=== PATIENT | female | born 1930 | race Caucasian/White ===

== ENCOUNTER 2017-10-01 18:27 | Inpatient (IN) | payer OTHER ==
[~2017-10-01] VITALS: Ht 154.9 cm; Wt 50.0 kg
--- NOTE | ~2017-10-01 | EKG ---
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
--- NOTE | ~2017-10-01 | O ---
[facility] [place] [address] OPERATIVE REPORT Name: SARAH MOORE Room #: 363-P [facility] IN M.R.#: [id number] Admission: 10/01/17 Attend Phys: Derrick Rangel MD Discharge: 10/05/17 Date of : 34 Report #: [id number] THIS REPORT FOR: //name// CC: Timo Rangel DATE OF SERVICE: 10/03/2017 PREOPERATIVE DIAGNOSIS: Possible upper gastrointestinal hemorrhage and abnormal CT scan. POSTOPERATIVE DIAGNOSIS: See below. ANESTHESIA USED: See nursing notes. NAME OF PROCEDURE PERFORMED: Esophagogastroduodenoscopy. INDICATION FOR PROCEDURE: As above. FINDINGS: Normal EGD. DESCRIPTION OF PROCEDURE: The risks and benefits of the procedure were explained in detail prior to conscious sedation. The patient was placed in left lateral decubitus position and the tip of the Olympus video endoscope was advanced into the oropharynx, esophagus, stomach, and into the third portion of the duodenum. Close inspection of the upper gastrointestinal mucosa was obtained upon slow withdrawal of the endoscope. The duodenum was normal in appearance without evidence of erosion or ulceration. The pylorus was patent without evidence of obstruction. The gastric antrum and gastric body were normal in appearance without evidence of ulcer or mass. Retroflexion allowed close inspection of the cardia and the fundus, which was normal as well without ulceration or mass. There was no bleeding source noted. There was no evidence of any mass throughout the entire stomach even after close inspection despite the CT findings. The GE junction was approximately 40 cm from the incisors and the rest of the esophagus was normal as well. The patient tolerated the procedure well and was discharged to recovery room. IMPRESSION: Normal EGD despite abnormal appearing CT of the stomach. PLAN: 1. If bleeding persists bleeding scan. 2. Consider colonoscopy. <ELECTRONICALLY SIGNED> By: Kwabena Sellers MD 10/06/17 [id number] Will Gonzales MD /nt
--- NOTE | ~2017-10-01 | HC ---
[facility] [place] [address] CONSULTATION Name: SARAH MOORE Room #: 363-P [facility] IN M.R.#: [id number] Admission: 10/01/17 Attend Phys: Derrick Rangel MD Discharge: 10/05/17 Date of : 34 Report #: [id number] THIS REPORT FOR: //name// CC: Timo Rangel DATE OF SERVICE: 10/03/2017 HISTORY OF PRESENT ILLNESS: The patient is an 87-year-old female I have been asked to see for further evaluation of rectal bleeding. Her medical history is notable for hypertension, hypercholesterolemia, coronary artery disease, tonsillectomy, appendectomy and partial hysterectomy. She had a colonoscopy done approximately one year ago with polyps. Details are not available, otherwise. She had an upper endoscopy as well. FAMILY HISTORY AND SOCIAL HISTORY: Noncontributory. She does have alcohol consumption, but not abuse. MEDICATIONS: Vitamin D3, Crestor, Lopressor and Cozaar. REVIEW OF SYSTEMS: Negative for weight loss, recent weakness or fatigue. She denies head, eyes, ears, nose or throat complaints. She denies chest pain, chest palpitation, chest pressure, cough, shortness of breath, wheezing, genitourinary, musculoskeletal or neuropsychiatric complaints. PHYSICAL EXAMINATION: VITAL SIGNS: Afebrile, vital signs stable. HEENT: Nonicteric. NECK: No JVD, thyromegaly or bruits. CARDIOVASCULAR: Regular. LUNGS: Clear. ABDOMEN: Soft, nondistended, nontender, normoactive bowel sounds. No hepatosplenomegaly. No stigmata of chronic liver disease. No abnormal masses or bruits. EXTREMITIES: No clubbing, cyanosis or edema. NEUROLOGIC: Grossly intact. RECTAL: Deferred. PERTINENT LABORATORY DATA: Reviewed, include presenting hemoglobin of 7.0 up to 9.3 after several units of blood. Her BUN and creatinine is 21/0.6. Other serum chemistries noted. She is not iron deficient. 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 No lymph nodes. No question of obstruction. ASSESSMENT AND PLAN: In summary, the patient presents with upper gastrointestinal hemorrhage and concerning CT scan suggesting a gastric mass. [facility] [address] [place] [address] CONSULTATION Name: SARAH MOORE Room #: 363-P [facility] IN .R.#: [id number] Admission: 10/01/17 Attend Phys: Derrick Rangel MD Discharge: 10/05/17 Date of : 34 Report #: [id number] We will proceed with upper endoscopy at this point and have further recommendations to follow. Thanks for allowing me to participate in the care of this nice woman. <ELECTRONICALLY SIGNED> By: Kwabena Sellers MD 10/06/17 1013 [id number] 16 Will Gonzales MD /nt
[2017-10-01 18:28] VITALS: BP 93/33
[2017-10-01] MEDS ORDERED: VITAMIN D-32000 UNIT PO (18:38)
[2017-10-01] MEDS ORDERED: CRESTOR40 MG PO (18:38)
[2017-10-01] MEDS ORDERED: LOPRESSOR100 M1 PO (18:39)
[2017-10-01] MEDS ORDERED: COZAAR 25 MG TA25 M1 PO (18:39)
[2017-10-01 19:01] LABS: HEMATOCRIT 20.8 % (37.0-47.0); MCH 31.8 pg (26.0-34.0); MCHC 33.7 g/dL (28.0-37.0); MCV 94.3 fL (80.0-100.0); PLATELET COUNT 123 thou/uL (150-400); RBC 2.21 mil/uL (4.20-5.00); RDW 12.9 % (10.5-14.5); WBC 13.9 thou/uL (4.0-11.0)
[2017-10-01 19:16] LABS: INR 1.2; PROTIME 11.8 Seconds (9.3-11.4)
[2017-10-01 19:18] LABS: CALCIUM 8.4 mg/dL (8.5-10.1); CREATININE 0.9 mg/dL (0.6-1.0); POTASSIUM 3.6 mmol/L (3.5-5.1); TOTAL BILIRUBIN 0.3 mg/dL (<0.1-1.0)
[2017-10-01 19:33] LABS: LARGE PLATELETS RARE
[2017-10-01 19:52] VITALS: BP 101/35
[2017-10-01 20:50] VITALS: BP 120/57
[2017-10-01 22:05] VITALS: BP 105/47; BP 94/42
[2017-10-02] VITALS (8 sets, daily range): BP systolic 87–128; BP diastolic 33–79
[2017-10-02 06:02] LABS: HEMOGLOBIN 6.8 gm/dL (12.0-15.0)
[2017-10-02 06:03] LABS: ABSOLUTE RETIC COUNT 0.07 10^6/uL; OBSERVED RETIC COUNT 3.33 % (0.6-2.6)
[2017-10-02 06:04] LABS: MCH 32.4 pg (26.0-34.0); MCHC 35.1 g/dL (28.0-37.0); MCV 92.3 fL (80.0-100.0); RBC 2.1 mil/uL (4.20-5.00); RDW 13.4 % (10.5-14.5); WBC 10.3 thou/uL (4.0-11.0)
[2017-10-02 06:07] LABS: HEMATOCRIT 19.4 % (37.0-47.0)
[2017-10-02 06:13] LABS: CALCIUM 7.2 mg/dL (8.5-10.1); CREATININE 0.6 mg/dL (0.6-1.0); POTASSIUM 3.6 mmol/L (3.5-5.1)
[2017-10-02 06:28] LABS: % SATURATION 85 % (20-39); IRON 169 ug/dL (50-170); TIBC 199 ug/dL (250-450)
[2017-10-02 07:45] LABS: FOLIC ACID 28.8 ng/mL (8.6-58.9)
[2017-10-02 10:18] LABS: CHOLESTEROL 71 mg/dL (<200); HDL CHOLESTEROL 31 mg/dL (>40); LDL CHOLESTEROL 20 mg/dL (<100); TC:HDL 2.3 Ratio (Not establshd); TRIGLYCERIDE 100 mg/dL (<150); VLDL 20 mg/dL (<40)
[2017-10-02 16:10] LABS: HEMATOCRIT 23.3 % (37.0-47.0); HEMOGLOBIN 8.1 gm/dL (12.0-15.0)
[2017-10-02 22:37] LABS: HEMOGLOBIN 6.9 gm/dL (12.0-15.0)
[2017-10-02 22:46] LABS: HEMATOCRIT 19.6 % (37.0-47.0)
[2017-10-03] VITALS (8 sets, daily range): BP systolic 102–127; BP diastolic 45–73
[2017-10-03 08:09] LABS: HEMATOCRIT 27.5 % (37.0-47.0); MCHC 33.9 g/dL (28.0-37.0); MCV 88.7 fL (80.0-100.0); RBC 3.1 mil/uL (4.20-5.00); RDW 14.8 % (10.5-14.5); WBC 12.5 thou/uL (4.0-11.0)
[2017-10-03 08:10] LABS: HEMOGLOBIN 9.3 gm/dL (12.0-15.0)
[2017-10-03 15:33] LABS: HEMATOCRIT 22.5 % (37.0-47.0); HEMOGLOBIN 7.7 gm/dL (12.0-15.0)
[2017-10-04 00:15] VITALS: BP 114/56
[2017-10-04 03:30] VITALS: BP 107/45
[2017-10-04 05:31] LABS: HEMATOCRIT 23.1 % (37.0-47.0); HEMOGLOBIN 7.9 gm/dL (12.0-15.0); MCH 30.5 pg (26.0-34.0); MCHC 34.1 g/dL (28.0-37.0); MCV 89.4 fL (80.0-100.0); RBC 2.58 mil/uL (4.20-5.00); RDW 14.4 % (10.5-14.5); WBC 14.1 thou/uL (4.0-11.0)
[2017-10-04 07:40] VITALS: BP 105/46
[2017-10-04 11:49] VITALS: BP 112/44
[2017-10-04 16:06] VITALS: BP 129/47
[2017-10-04 19:40] VITALS: BP 125/49
[2017-10-05 00:25] VITALS: BP 116/56
[2017-10-05 03:45] VITALS: BP 116/50
[2017-10-05 07:23] VITALS: BP 106/37
[2017-10-05 11:19] VITALS: BP 105/41
[2017-10-05 15:40] VITALS: BP 119/52
== END 2017-10-05 16:48 | DRG 377 ==
LOC: ER 18:27 → 3W 19:38 → EROBS 19:38 → 3W 20:25
PROVIDERS: Emergency Medicine; Hospitalist; Internal Medicine Gastroenterology; Nurse Practitioner Family
PROC: 30233N1 Transfusion of Nonautologous Red Blood Cells into Peripheral Vein, Percutaneous Approach (ICD-10-PCS; principal; 2017-10-01)
PROC: 0DJ08ZZ Inspection of Upper Intestinal Tract, Via Natural or Artificial Opening Endoscopic (ICD-10-PCS; 2017-10-03)
PROC: 0DJD8ZZ Inspection of Lower Intestinal Tract, Via Natural or Artificial Opening Endoscopic (ICD-10-PCS; 2017-10-05)
DX: K92.1 Melena (principal); E43 Unspecified severe protein-calorie malnutrition; D62 Acute posthemorrhagic anemia; I10 Essential (primary) hypertension; E78.00 Pure hypercholesterolemia, unspecified; I95.9 Hypotension, unspecified; I25.10 Atherosclerotic heart disease of native coronary artery without angina pectoris; E78.5 Hyperlipidemia, unspecified; I73.9 Peripheral vascular disease, unspecified; J44.9 Chronic obstructive pulmonary disease, unspecified; Z68.20 Body mass index [BMI] 20.0-20.9, adult; Z90.711 Acquired absence of uterus with remaining cervical stump; Z79.899 Other long term (current) drug therapy; Z88.6 Allergy status to analgesic agent; Z90.49 Acquired absence of other specified parts of digestive tract; Z87.891 Personal history of nicotine dependence; Z71.6 Tobacco abuse counseling
CPT/HCPCS: 10879; 62110; 62900